=== PATIENT | male | born 1990 | race African-American/Black ===

== ENCOUNTER 2025-06-20 15:21 | Emergency (ER) | payer OTHER ==
[~2025-06-20] VITALS: Ht 177.8 cm; Wt 82.0 kg
[2025-06-20 15:28] VITALS: BP 106/62; PULSE 98; RESP 18; TEMP 36.8; O2SAT 99
== END 2025-06-20 16:05 ==
LOC: ER 15:21
DX: S20.409A Unspecified superficial injuries of unspecified back wall of thorax, initial encounter (principal); X58.XXXA Exposure to other specified factors, initial encounter; Y93.89 Activity, other specified; Y92.89 Other specified places as the place of occurrence of the external cause; Y99.8 Other external cause status
CPT/HCPCS: 99283